=== PATIENT | female | born 1995 | race Caucasian/White ===

== ENCOUNTER 2022-01-29 17:35 | Emergency (ER) | payer SELFPAY ==
[2022-01-29] MEDS ORDERED: HYDROcodone/ACETAMINOPHEN 5-325 MG TAB PO ONE (18:39)
[2022-01-29] MEDS ORDERED: ONDANSETRON 2 MG/2.5 ML ORAL LIQD PO ONE (18:40)
[2022-01-29] MEDS ORDERED: MECLIZINE 25 MG TAB PO ONE (18:40)
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
[2022-01-29 20:26] VITALS: BP 118/73
== END 2022-01-29 20:35 | disposition home or self-care (01) ==
LOC: ED 17:35
DX: S06.0X1A Concussion with loss of consciousness of 30 minutes or less, initial encounter (principal); W22.8XXA Striking against or struck by other objects, initial encounter; Y93.89 Activity, other specified; Y92.89 Other specified places as the place of occurrence of the external cause; Y99.8 Other external cause status
CPT/HCPCS: 70450; 72125; 99283; Q0162